=== PATIENT | female | born 1985 | race Caucasian/White ===

== ENCOUNTER 2020-12-06 09:06 | Outpatient (CLI) | payer BC, SELFPAY ==
--- NOTE | ~2020-12-06 | MM_ITS ---
EXAMINATION: MM screening sun BI w edgard HISTORY: Screening TECHNIQUE: Craniocaudal and mediolateral oblique 3-D tomosynthesis images were obtained and synthetic 2-D images were generated. CAD analysis was submitted and interpreted. COMPARISON: No prior mammogram is available for comparison at this institution. BREAST PARENCHYMAL COMPOSITION: The breasts are heterogeneously dense, which may obscure small masses . FINDINGS: There is no evidence of suspicious mass, calcification, or architectural distortion to sugg est malignancy in either breast. There has been no suspicious interval change. IMPRESSION: 1. No mammographic evidence of malignancy. 2. Recommend routine screening mammography in one year. BI-RADS Category 1: Negative Reviewed, dictated and finalized at location A.
== END 2020-12-06 09:07 | disposition home or self-care (01) ==
LOC: ANHIMG 09:09
PROVIDERS: Visit Provider Surgery Plastic and Reconstructive Surgery
DX: Z12.31 Encounter for screening mammogram for malignant neoplasm of breast (principal)
CPT/HCPCS: 77063; 77067

== ENCOUNTER → 2021-01-07 04:50 | Outpatient (CLI) | payer OTHER, SELFPAY ==
[2021-01-08 19:26] LABS: SARS-CoV-2 RNA PCR Negative
== END ==
PROVIDERS: Visit Provider Surgery Plastic and Reconstructive Surgery
DX: Z01.812 Encounter for preprocedural laboratory examination (principal); Z20.822 Contact with and (suspected) exposure to COVID-19
CPT/HCPCS: C9803; U0003; U0005

== ENCOUNTER 2021-01-10 11:42 | Day surgery (SDC) | payer OTHER, SELFPAY ==
[2020-12-26 13:36] VITALS: BMI 19.1
--- NOTE | 2021-01-09 08:58 | P.PNAN_ITS ---
Anes - Initial Pre Proc Eval Procedure: Operation Date: 01/10/21 13:30 Proposed Procedures p Bilateral Breast Augmentation Mammoplasty - Alexis De La Rosa MD Date/Time: 01/09/21 08:58 Surgeon: Alexis De La Rosa MD Pre Op Diagnosis: Micromastia Patient Data Age: 35 Gender: F Height: 1.6 m Weight: 49 kg Allergies Allergy/AdvReac Type Severity Reaction Status Date / Time diphenhydramine Allergy Unknown Palpitation Verified 01/10/21 12:14 [From Benadryl] s enoxaparin [From Lovenox] Allergy Dyspnea / Verified 01/10/21 12:15 SOB Penicillins Allergy Rash Verified 01/10/21 12:15 Home Medications Medication Instructions Recorded Confirmed Type carisoprodol 350 mg tablet 350 mg PO TID PRN #21 tablet 12/12/20 12/26/20 Rx docusate sodium 100 mg capsule 100 mg PO DAILY #14 cap 12/12/20 12/26/20 Rx ondansetron HCl 4 mg tablet 4 mg PO Q8H #21 tablet 12/12/20 12/26/20 Rx oxycodone-acetaminophen 5 mg-325 1 tablet PO Q6H PRN #15 tablet 12/12/20 12/26/20 Rx mg tablet Patient hx anesthesia problems: none Family hx anesthesia problems: none Results Review: All pre-operative results and documents have been reviewed as part of the pre-operative evaluation. FORMERLY [facility], [facility] Surgical History Surgical History Hx of abdominoplasty Hx of section Family History Family History Other Breast cancer Social History Social History Smoking status: Light tobacco smoker Tobacco type: cigarettes Alcohol intake: current Substance use: never Substance use type: does not use Living arrangements: with family Spiritual care concerns: No Anes - Eval Final PreProcedure Day of Procedure 01/09/21 08:58 Patient weight: thin Heart: regular rate and rhythm Lungs: clear to auscultation and normal air movement Airway: Mallampati scale class II Neurological: alert and oriented Last oral intake: >/= 8 hours ASA classification: II Emergent: no Anesthetic plan: proceed Anesthesia type and monitoring: general LMA and standard monitoring Results Review: All pre-operative results and documents have been reviewed as part of the pre-operative evaluation. Informed Consent: The patient's anesthetic plan and its attendant risks and benefits were discussed with the patient/family/POA. Questions were solicited and answers provided to the satisfaction of the patient/family/POA.
[2021-01-10] VITALS (7 sets, daily range): BP systolic 97–112; BP diastolic 59–79; PULSE 66–88; RESP 8–24; TEMP 36.2–37.2; O2SAT 99–100
[2021-01-10] MEDS: SCOPOLAMINE 1.5 MG PATCH TRANSDERM (12:39)
[2021-01-10] MEDS: LACTATED RINGERS 1,000 ML 30 ML IV CONT ×2 (12:39→14:36)
--- NOTE | 2021-01-10 12:47 | WPDHPUPDATE1 ---
History and Physical Update Update Date/Time: 01/10/21 12:47 History and Physical has been reviewed, including an updated exam of the patient. There are NO changes in the patient's condition. Risks, benefits, and alternatives have been discussed and questions answered. Patient agrees to proceed with procedure.
[2021-01-10] MEDS: ceFAZolin SODIUM 2 GM/20 ML SW SYRINGE IV PUSH (13:18)
[2021-01-10] MEDS: BUPIVACAINE HCL 0.25% 50 ML VIAL INFILTRATE (13:30)
[2021-01-10] MEDS: LIDO 1%/EPINEPHRINE 1:100,000 20 ML VIAL 30 ML INFILTRATE (13:56)
--- NOTE | 2021-01-10 14:23 | W.PM.PROC2 ---
Procedure Note - Detailed Date of Procedure 01/10/21 Pre-op Diagnosis Micromastia Post-op Diagnosis same Procedure Performed Bilateral Augmentation Mammaplasty Surgeon Alexis De La Rosa MD Anesthesia general Indications Patient felt like her right breast was subtly smaller than her left and would like to do small volume differential volume with same implants. Findings Dual plane 1 Deshawn Saline-Filled smooth implants Right - REF# [id number] SN [id number] 225cc filled to 245cc Left - REF# [id number] SN [id number] 225cc filled to 235cc Description of Procedure She is here today for bilateral breast augmentation. Previously and again today the risks, benefits, alternatives were discussed in extensive detail. I wanted her to be very realistic about the risks involved as well as expectations. We discussed aftercare and what to monitor for. Made sure answered all of her questions to her satisfaction today and consent was obtained. Marked in the preoperative holding area with their verification. The patient was taken to the operating room placed supine on the operating table. Anesthesia was provided by anesthesiology. A surgical time-out was taken. We cleansed the skin and 1% lidocaine and 0.25% Marcaine with epinephrine was used anesthetize as a field block. She was prepped and draped in a standard sterile fashion. Tegaderm nipple Bull were placed. A 15 blade used to make an incision along the inframammary fold. Dissection was continued at 45 degree angle until the chest wall as identified. I incised the pectoralis major along its inferior border and completely released the inferior border leaving the medial border intact. I created a subpectoral pocket in the appropriate dimensions based on our preoperative planning for the implant. I then copiously irrigated with saline solution and verified a strict hemostasis. Next the use a triple antibiotic and Betadine containing solution to irrigate the pocket. I washed my gloves with the triple antibiotic and Betadine solution. We washed the implant immediately upon opening it with this solution and only opened it when we needed it. Air was removed on the back table. Introduced into the pocket and filled with a fill kit to the volumes above. Having verified positioning of the implant this was closed using 2-0 Vicryl followed by 3-0 Monocryl in a running subcuticular 4-0 Monocryl followed by tissue glue. Fluffs, Polo wrap, and surgical bra were placed. Patient was awoke and taken to PACU without difficulty. All instrument sponge counts were correct at the end of the case. Estimated Blood Loss 20 Drains No Packing No Pathology none sent Complications No immediate complications Condition stable Disposition PACU
--- NOTE | 2021-01-10 14:53 | SUR.PHASEI ---
JELENA RIGGS APPLIED TO PATIENT IN PACU- SHIVERING ENDED
[2021-01-10] MEDS: fentaNYL CITRATE INJ (*CRX) 100 MCG/2 ML VIAL 25 MCG IV PUSH (14:57)
[2021-01-10] MEDS: oxyCODONE HCL (*CRX) 5 MG TAB IR PO (15:28)
--- NOTE | 2021-01-10 15:35 | WPDANESPN ---
Anes - Prog Note Post-Op Date/Time: 01/10/21 15:35 Cardiovascular status: normal Respiratory status: normal Airway patency: baseline Mental status: baseline Post-Op hydration status: normal Vital Signs: Last Vital Signs Temp 36.2 C L 01/10/21 14:28 Pulse 66 01/10/21 15:10 Resp 24 H 01/10/21 15:10 BP 104/73 01/10/21 15:10 Pulse Ox 100 01/10/21 15:10 Pain Score (VAS): 2 I/O: Intake & Output 01/09/21 01/10/21 01/10/21 23:59 07:59 15:59 Intake Total 100 Balance 100 Post-procedural complaints: none Patient Feedback: Patient satisfied with anesthetic care. Other Findings: Patient vital signs back to baseline. Patient denies nausea and vomiting. Patient's pain under control. Patient OK for discharge.
== END 2021-01-10 15:57 | disposition home or self-care (01) ==
PROVIDERS: Visit Provider Surgery Plastic and Reconstructive Surgery
PROC: (CPT 19325; principal; 2021-01-10 13:30)
DX: N64.82 Hypoplasia of breast (principal)
CPT/HCPCS: 19325